=== PATIENT | male | born 1985 | race Caucasian/White ===

== ENCOUNTER 2020-11-20 21:25 | Inpatient (IN) | payer BC ==
[~2020-11-20] VITALS: Ht 175.3 cm; Wt 94.0 kg
[~2020-11-20 21:25] MED LIST: NAPROSYN500 MG PO
--- NOTE | 2020-11-20 22:10 | NUR ---
TO ROOM VIA AMBULATORY. NAD.
--- NOTE | 2020-11-20 23:00 | NUR ---
RESTING QUIETLY. NAD.
[2020-11-20 23:16] LABS: HEMATOCRIT 46.2 % (39.0-50.0); HEMOGLOBIN 15.4 g/dl (14.0-18.0); IMMATURE GRANULOCYTES 1.9 % (0.0-5.0); MEAN CELL VOLUME 89.5 fL CALC (80.0-100.0); MEAN CORPUSCULAR HGB 29.8 pG CALC (26.0-32.0); MEAN CORPUSCULAR HGB CONC 33.3 g/dL CAL (32.0-36.0); NEUT# 3.13 thou/uL (1.82-7.42); RED BLOOD COUNT 5.16 mill/uL (4.70-6.10); RED CELL DISTRI WIDTH 11.7 % (11.5-15.5)
[2020-11-20 23:32] LABS: ALBUMIN 4.3 g/dL (3.2-5.0); BILIRUBIN, TOTAL 0.5 mg/dL (0.0-1.4); BUN 16 mg/dL (9-20); BUN/CREATININE RATIO 19 (12-20 (CALC)); CHLORIDE 98 mmol/l (95-108); CREATININE 0.9 mg/dL (0.7-1.3); GFR > 60 ML/MIN (>=60 (CALC)); GFR FOR AFR.AMER. > 60 ML/MIN (>=60 (CALC)); LIPASE 168 u/l (23-300); POTASSIUM 3.7 mmol/l (3.5-5.1); TOTAL PROTEIN 7.3 g/dL (6.3-8.2)
[2020-11-20 23:37] LABS: ALKALINE PHOSPHATASE 57 u/l (38-126); ANION GAP 17 (6-22 (CALC)); CARBON DIOXIDE 24 mmol/l (22-30); SGOT/AST 50 u/l (17-59); SODIUM 135 mmol/l (137-146)
--- NOTE | 2020-11-21 | NUR ---
NO SIGNIFICANT CHANGE.
[2020-11-21] MEDS ORDERED: CRESTOR20 MG PO (00:44)
[2020-11-21] MEDS ORDERED: AZELASTINE HYD0.15 % NS (00:47)
[2020-11-21] MEDS ORDERED: FLOVENT HFA44 MC1 (00:48)
[2020-11-21] MEDS ORDERED: JANUMET1 TA1 PO (00:49)
--- NOTE | 2020-11-21 01:00 | NUR ---
MEDS INFUSING WITHOUT PROBLEM. NAD.
[2020-11-21] MEDS ORDERED: JARDIANCE25 MG PO (01:07)
[2020-11-21] MEDS ORDERED: PIOGLITAZONE HC30 MG PO (01:08)
[2020-11-21] MEDS ORDERED: COZAAR25 MG PO (01:09)
[2020-11-21] MEDS ORDERED: OMEPRAZOLE20 MG PO (01:09)
[2020-11-21] MEDS ORDERED: MONTELUKAST SOD10 MG PO (01:09)
[2020-11-21] MEDS ORDERED: CITALOPRAM20 M1 PO (01:10)
--- NOTE | 2020-11-21 05:00 | NUR ---
NO SIGNIFICANT CHANGE NOTED
--- NOTE | 2020-11-21 12:55 | NUR ---
Reassessment of patient completed. No distress noted. REMDESIVIR MED DONE
--- NOTE | 2020-11-21 15:34 | NUR ---
Reassessment of patient completed. No distress noted.
--- NOTE | 2020-11-21 16:37 | NUR ---
1ST ATTEND TO GIVE REPORT
--- NOTE | 2020-11-21 18:00 | NUR ---
SPO2 85% ON 5L NC. CALL PLACED TO DR ELIZABETH. HE WOULD LIKE 02 INCREASED TO MAINTAIN SPO2 >9O. PATIENT MAINTAINING 92-93% ON 7L NC. DR ELIZABETH NOTIFIED AND WOULD LIKE PATIENT TO BE SENT TO
--- NOTE | 2020-11-21 18:50 | NUR ---
RECIEVED REPORT FROM CELIO SEGURA
--- NOTE | 2020-11-21 18:51 | NUR ---
REPORTED GIVED TO MARQUITA PICKENS
[2020-11-21 19:20] VITALS: BP 168/81
--- NOTE | 2020-11-21 19:33 | NUR ---
ASSESSMENT COMPLETE. PATIENT LAYING IN BED PRONING AT THIS TIME. NON PRODUCTIVE COUGH AT TIMES. SHORTNESS OF BREATH AT TIMES WHEN CHANGING POSITIONS. NO COMPLAINTS VOICED AT THIS TIME. CALL LIGHT AND BELONGINGS WITHIN REACH.
--- NOTE | 2020-11-21 19:35 | NUR ---
PATIENT ARRIVED TO [facility] VIA WC TO ROOM 288. ALERT AND ORIENTED. ABLE TO MAKE NEEDS KNOWN. HIGH FLOW OXYGEN SET UP FOR PATIENT. WATER AT BEDSIDE, CALL LIGHT AND BELONGINGS WITHIN REACH. PATIENT WITH MEAL TRAY EATING. NO COPLAINTS VOICED AT THIS TIME.
--- NOTE | 2020-11-21 19:45 | NUR ---
ASSESSMENT COMPLETE. PATIENT LAYING PRONE IN BED. NON PRODUCTIVE COUGH AT TIMES. SHORTNESS OF BREATH WHEN CHANGING POSITIONS. PATIENT DOES APPEAR TO LAY ON HIS SIDE ALOT. CALL LIGHT AND BELONGINGS WITHIN REACH.
--- NOTE | 2020-11-21 21:25 | NUR ---
CALL TO DEMURRAGE MAN PHYSICIAN. NOTIFIED OF PATIENTS TEMPERATURE OF 101.7. RECEIVED NEW ORDER FOR PRN TYLENOL.
--- NOTE | 2020-11-21 21:30 | NUR ---
PT IS PRONING, OXYGEN SAT 88% AT THIS TIME. OXYGEN NC 9L HIGH FLOW 89-91% PT IS PRONING AT THIS TIME. INFORMED HIS NURSE OF THIS STATUS.
--- NOTE | 2020-11-21 21:39 | NUR ---
SPOKE TO PT'S PROVIDED PASSCODE FOR PT. ANSWERED HER POC QUESTIONS AND INFORMED HER OF MEDICATIONS BEING ADMINISTERED. I ALSO INFORMED HER OF HIS PRESENT STATUS AND O2 LEVELS AND ACTIVE CARE AT THIS TIME. SHE THANKED ME AND VERBALIZED UNDERSTANDING. I ENCOURAGED HER TO FEEL FREE TO CALL ANYTIME THROUGHOUT THE NIGHT IF SHE NEEDED TO.
[2020-11-22] VITALS (14 sets, daily range): BP systolic 109–160; BP diastolic 58–92
--- NOTE | 2020-11-22 02:15 | NUR ---
PATIENT VOIDED USING URINAL. 1100CC YELLOW URINE NOTED. NEW ICE WATER GIVEN TO PATIENT. OXYGEN UP TO 10 L HIGH FLOW. PATIENT SATUARATION AT 93%. NO DISTRESS NOTED. LAYING PRONE AT THIS TIME.
[2020-11-22 05:32] LABS: HEMATOCRIT 43.9 % (39.0-50.0); HEMOGLOBIN 14.7 g/dl (14.0-18.0); MEAN CELL VOLUME 88.9 fL CALC (80.0-100.0); MEAN CORPUSCULAR HGB 29.8 pG CALC (26.0-32.0); MEAN CORPUSCULAR HGB CONC 33.5 g/dL CAL (32.0-36.0); NEUT# 4.45 thou/uL (1.82-7.42); RED BLOOD COUNT 4.94 mill/uL (4.70-6.10); RED CELL DISTRI WIDTH 11.8 % (11.5-15.5)
[2020-11-22 06:04] LABS: ALBUMIN 3.6 g/dL (3.2-5.0); ALKALINE PHOSPHATASE 42 u/l (38-126); ANION GAP 16 (6-22 (CALC)); BILIRUBIN, TOTAL 0.6 mg/dL (0.0-1.4); BUN 16 mg/dL (9-20); BUN/CREATININE RATIO 28 (12-20 (CALC)); CARBON DIOXIDE 21 mmol/l (22-30); CHLORIDE 102 mmol/l (95-108); CREATININE 0.6 mg/dL (0.7-1.3); GFR > 60 ML/MIN (>=60 (CALC)); GFR FOR AFR.AMER. > 60 ML/MIN (>=60 (CALC)); POTASSIUM 4.3 mmol/l (3.5-5.1); SGOT/AST 46 u/l (17-59); SODIUM 134 mmol/l (137-146); TOTAL PROTEIN 6.4 g/dL (6.3-8.2)
[2020-11-22 06:19] LABS: C-REACTIVE PROTEIN 13.7 mg/dL (0-0.9)
--- NOTE | 2020-11-22 08:00 | NUR ---
Pt sleeping, easily aroused. Pt. A&Ox3. Pt denies any pain or discomfort at this time. Vitals and assessment completed. Lung sounds diminished,
--- NOTE | 2020-11-22 12:55 | NUR ---
Patient to ICU5
--- NOTE | 2020-11-22 13:06 | NUR ---
PT ARRIVED TO ICU, PRONE ON BED, NO S/S OF DISTRESS NOTED, PLACED ON VAPOTHERM AT 30L/100% DENIES ANY FURTHER NEEDS
--- NOTE | 2020-11-22 14:15 | NUR ---
REDEMISVER HUNG IVPB, URINAL EMPTIED, PT NOW SITTING UP SUPINE
--- NOTE | 2020-11-22 18:36 | NUR ---
PT GUILLERMINA UPDATEED MUTIPLE TIMES ON PHONE. PT DENIES NEEDS AT THIS TIME, EATING DINNER
--- NOTE | 2020-11-22 19:45 | NUR ---
RESTING IN BED IN HIGH FOWLERS POSITION. ON VAPOTHERM 30L/100% RESP SHALLOW. PAUL. BREATH SOUNDS DIMINISHED THROUGHOUT. IV SITE IN RAC WITH NS INFUSING AT 125 ML/HR. VOIDS LARGE AMOUNT CLEAR YELLOW URINE IN URINAL. SCRUM MASTER SHOWS SR. DISCUSSED PLAN OF CARE. EXPLAINED THE IMPORTANCE OF RESTING IN PRONE POSITION MUCH POSSIBLE. PATIENT VERBALIZES UNDERSTANDING. CALL THAO IN REACH. DENIES NEEDS AT THIS TIME.
--- NOTE | 2020-11-22 22:15 | NUR ---
CALL TO PATIENT , TIESHA TO UPDATE ON PATIENT CONDITION. PATIENT MOM PHONED EARLIER ADVISED TO GET UPDATES THROUGH PATIENT .
[2020-11-23] VITALS (23 sets, daily range): BP systolic 114–147; BP diastolic 58–94
--- NOTE | 2020-11-23 | NUR ---
PATIENT RESITNG IN PRONE POSITION. O2 SATS 93-97% VSS. SR ON MONITOR. IV INFUSING WITHOUT INCIDENT.
--- NOTE | 2020-11-23 02:00 | NUR ---
PATIENT CONTINUES TO REST IN PRONE POSITION. VSS. RESP NON-LABORED AT THIS TIME. REMAINS ON VAPOTHERM 30 L/80% MONITOR SR. IV INFUSING WITHOUT INCIDENT.
--- NOTE | 2020-11-23 05:44 | NUR ---
PATIENT RESTING WITHOUT COMPLAINTS. VSS. RESP NON-LABORED. REMIANS ON VAPOTHERM. IV INFUSING WITHOUT INCIDENT.
[2020-11-23 06:13] LABS: HEMATOCRIT 45.4 % (39.0-50.0); HEMOGLOBIN 15.2 g/dl (14.0-18.0); MEAN CELL VOLUME 89.2 fL CALC (80.0-100.0); MEAN CORPUSCULAR HGB 29.9 pG CALC (26.0-32.0); MEAN CORPUSCULAR HGB CONC 33.5 g/dL CAL (32.0-36.0); RED BLOOD COUNT 5.09 mill/uL (4.70-6.10); RED CELL DISTRI WIDTH 11.9 % (11.5-15.5)
[2020-11-23 06:31] LABS: ANION GAP 14 (6-22 (CALC)); BUN 15 mg/dL (9-20); BUN/CREATININE RATIO 26 (12-20 (CALC)); CARBON DIOXIDE 22 mmol/l (22-30); CHLORIDE 106 mmol/l (95-108); CREATININE 0.6 mg/dL (0.7-1.3); GFR > 60 ML/MIN (>=60 (CALC)); GFR FOR AFR.AMER. > 60 ML/MIN (>=60 (CALC)); POTASSIUM 4.4 mmol/l (3.5-5.1); SODIUM 138 mmol/l (137-146)
--- NOTE | 2020-11-23 06:45 | NUR ---
REPORT RECEIVED FROM AMARILIS PICKENS. CARE ASSUMED.
--- NOTE | 2020-11-23 07:40 | NUR ---
PATIENT RESTING IN BED AWAKE. PATIENT IS ALERT AND ORIENTED X3. SHIFT ASSESSMENT COMPLETED AT THIS TIME. IV PATENT X1. SET UP FOR AM MEAL. EDUCATION GIVEN ON PRONING AND INCENTIVE SPIROMETER. CALL LIGHT IN REACH. WILL CONTINUE TO MONITOR.
--- NOTE | 2020-11-23 08:00 | NUR ---
SPOUSE CALL AT THIS TIME. CODE VERIFIED. UPDATE GIVEN.
--- NOTE | 2020-11-23 08:22 | NUR ---
PT IN BED, NAD, WATCHING TELEVISION. NO CHANGES IN HHFNC PARAMETERS AT THIS TIME. EQUIPMENT MAINT TECH TO MONITOR.
--- NOTE | 2020-11-23 09:00 | NUR ---
DR BRICENO AT BEDSIDE AT THIS TIME. PLAN OF CARE DISCUSSED.
--- NOTE | 2020-11-23 10:00 | NUR ---
IV TO RAC OUT. REMOVED. NEW IV STARTED TO LFA. PATIENT TOLERATED WELL.
--- NOTE | 2020-11-23 10:15 | NUR ---
NO CHANGES AT THIS TIME. CUSTOMS COMPLIANCE DIRECTOR TO MONITOR.
--- NOTE | 2020-11-23 12:00 | NUR ---
PATIENT SITTING UP IN BED EATING LUNCH AT THIS TIME. CALL LIGHT IN REACH. WILL CONTINUE TO MONITOR
--- NOTE | 2020-11-23 13:15 | NUR ---
VAPOTHERM TITRATE TO 28 LITERS 80%. O2 SATS REMAINS > 92%. WILL CONTINUE TO MONITOR.
--- NOTE | 2020-11-23 14:00 | NUR ---
PATIENT RESTING IN BED WATCHING TV. VAPOTHERM SETTIGN REMAIN THE SAME. NO DISTRESS NOTED. CALL LIGHT IN REACH. WILL CONTINUE TO MONITOR.
--- NOTE | 2020-11-23 16:02 | NUR ---
PATIENT RESTING IN BED. VSS ON MONITOR. WILL CONTINUE TO MONITOR.
--- NOTE | 2020-11-23 18:00 | NUR ---
PATIENT RESTING IN BED EATING DINNER. RESP ARE EVEN AND UNLABORED. NO DISTRESS NOTED. CALL LIGHT IN REACH. WILL CONTINUE TO MONITOR.
--- NOTE | 2020-11-23 19:46 | NUR ---
PATIENT RESTING INBED AWAKE. PATIENT IS ALERT AND ORIENTED X3. VSS ON MONITOR. SPOUSE DROPPED OFF ITEMS THAT WERE GIVEN TOPATIENT. CALL LIGHT IN REACH.WILL CONTINUE MONITOR.
--- NOTE | 2020-11-23 22:45 | NUR ---
BEDSIDE REPORT RECEIVED FROM Prem BLACK RN. NON-INVASIVE HEMODYNAMICS STABLE. PT APPEARS TO BE SLEEPING COMFORTABLY IN PRONE POSITION. NO APPARENT DISTRESS. WEARING 02 @ 28L/MIN 80% FIO2 VIA VAPOTHERM L-FA #22G WITH NON-OCCLUSIVE DRESSING C/D/I SALINE LOCKED. URINAL AT BEDSIDE. CALL THAO WITHIN REACH.
[2020-11-24] VITALS (22 sets, daily range): BP systolic 113–148; BP diastolic 63–92
--- NOTE | 2020-11-24 | NUR ---
PT LAYING IN PRONE POSITIONS. APPEARS TO BE SLEEPING COMFORTABLY. VAPOTHERM IN PLACE. SPO2 94%. SB 50S ON MONITOR. APPEARS COMFORTABLE AND IN NO DISTRESS. CALL THAO REMAINS WITHIN REACH.
[2020-11-24 05:40] LABS: HEMOGLOBIN 15.1 g/dl (14.0-18.0); MEAN CELL VOLUME 88.9 fL CALC (80.0-100.0); MEAN CORPUSCULAR HGB 29.8 pG CALC (26.0-32.0); MEAN CORPUSCULAR HGB CONC 33.6 g/dL CAL (32.0-36.0); RED BLOOD COUNT 5.06 mill/uL (4.70-6.10); RED CELL DISTRI WIDTH 11.7 % (11.5-15.5)
[2020-11-24 05:52] LABS: ANION GAP 15 (6-22 (CALC)); BUN 19 mg/dL (9-20); BUN/CREATININE RATIO 31 (12-20 (CALC)); CARBON DIOXIDE 23 mmol/l (22-30); CHLORIDE 104 mmol/l (95-108); CREATININE 0.6 mg/dL (0.7-1.3); GFR > 60 ML/MIN (>=60 (CALC)); GFR FOR AFR.AMER. > 60 ML/MIN (>=60 (CALC)); POTASSIUM 4.4 mmol/l (3.5-5.1); SODIUM 137 mmol/l (137-146)
--- NOTE | 2020-11-24 08:26 | NUR ---
PT SITTING IN BED. A&O X4. FLUSHED APPEARANCE NOTED; AFEBRILE AT THIS TIME. CLEAR DIMINISHED BREATH SOUNDS UPON AUSCULTATION. VAPOTHERM IN PLACE 28L @ 80%. PT SUSTAINING 91-93%. CURRENTLY SB/SR 54-60 BPM. PT ENCOURAGED TO USE IS DEVICE. ACTIVE BOWEL SOUNDS X4 QUADRANTS. NO OTHER NEEDS AT THIS TIME. ASSESSMENT COMPLETED. DISCUSSED POC. ISOLATION PRECAUTIONS IN PLACE. CALL LIGHT WITHIN REACH.
--- NOTE | 2020-11-24 09:34 | NUR ---
DR BRICENO AT BEDSIDE DISCUSSING POC
--- NOTE | 2020-11-24 10:00 | NUR ---
PT SITTING IN BED. NO OTHER NEEDS AT THIS TIME. CALL LIGHT WITHIN REACH.
--- NOTE | 2020-11-24 10:01 | NUR ---
WEANED PER PT SPO2. MARTÍN WELL AT THIS TIME. CORPORATE FITNESS PROGRAM COORDINATOR TO MONITOR.
--- NOTE | 2020-11-24 11:59 | NUR ---
PT IN BED EATING LUNCH. VAPOTHERM REMAINS IN PLACE. NO OTHER NEEDS AT THIS TIME. CALL LIGHT WITHIN REACH.
--- NOTE | 2020-11-24 14:19 | NUR ---
PT SITTING IN BED. NO DISTRESS NOTED. CALL LIGHT WITHIN REACH.
--- NOTE | 2020-11-24 15:00 | NUR ---
ROBITUSSIN GIVEN FOR COUGH, PT DENIES THE NEEDED FOR TORADOL AT THIS TIME. 900 CC OF CLEAR YELLOW URINE NOTED. NO OTHER NEEDS AT THIS TIME. CALL LIGHT WITHIN REACH.
--- NOTE | 2020-11-24 18:00 | NUR ---
PT SITTING IN BED. NO DISTRESS NOTED. VAPOTHERM REMAINS. O2 93%. NO OTHER NEEDS AT THIS TIME. CALL LIGHT WITHIN REACH.
--- NOTE | 2020-11-24 19:00 | NUR ---
REPORT RECEIVED FROM Govind MEYER RN, CARE OF PT ASSUMED AT THIS TIME.
--- NOTE | 2020-11-24 20:26 | NUR ---
PHYSICAL ASSESEMENT COMPLETE: A/0X3, PLEASANT AND COOPERATIVE. SEMI-FOWLERS IN BED. SB 50S-SR 60S ON MONITOR. BREATHING REGULAR AND UNLABORED. SP02 91% ON VAPOTHERM @ 25L/M FIO2 75%. LUNG SOUNDS CLEAR WITH DIMINISHED BASES. SOB WITH MINIMAL EXERTION. MILD DRY NON-PRODUCTIVE COUGH. L-FA 22G PATENT AND SALINE LOCKED. PT REPORTS GOOD APPETITE. REPORTS LAST BM "YESTERDAY OR THE DAY BEFORE". DENIES URINARY PROBLEMS. USING URINAL AT BEDSIDE. URINE PALE YELLOW AND CLEAR. SCHEDULED MEDICATIONS AND REQUESTED PRN MEDICATIONS ADMINISTERED. SEE E-MAR FOR DETAILS. VERBAL MEDICATION EDUCATION PROVIDED. PLAN OF CARE REVIEWED. PULMONARY HYGIENE AND PRONING EDUCATION PROVIDED. PT VERBALIZES UNDERSTANDING AND AGREEMENT. PT DENIES FURTHER NEEDS AT THIS TIME. ITEMS WITHIN REACH. CALL THAO WITHIN REACH. AGREES TO CALL PRN. LIGHTS DIMMED AND CURTAINED PULLED FOR COMFORT. COVID-19 ISOLATION MAINTAINED. BED LOCKED IN LOW POSITION WITH BEDRAILS UP X2.
--- NOTE | 2020-11-24 20:52 | NUR ---
CALL RECEIVED REGARDING PATIEMT. CALLER IDENTIFIES SELF PT'S SPOUSE AND PROVIDES CORRECT COMMUNICATION CODE. PT'S STATUS AND PLAN OF CARE REVIEWED WITH CALLER. ALL QUESTIONS ANSWERED. DENIES FURTHER QUESTIONS AND VERBALIZES UNDERSTANDING.
--- NOTE | 2020-11-24 22:09 | NUR ---
800ML CLEAR PALE YELLOW URINE EMPTIED FROM URINAL. PT REMAINS SEMIFOWLERS IN BED. LISTENING TO MUSIC ON CELL PHONE. ADVISED OF CALL RECEIVED FROM SPOUSE AND THAT HIS STATUS AND PLAN OF CARE WAS REVIEWED WITH CALLER. REMAINS SB-SR 60/50S ON MONITOR. SP02 96%. NO CHANGES TO VAPOTHERM SETTINGS. PT DENIES FURTHER NEEDS. CALL THAO REMAINS WITHIN REACH. AGREES TO CALL PRN.
[2020-11-25] VITALS (21 sets, daily range): BP systolic 108–142; BP diastolic 65–87
--- NOTE | 2020-11-25 00:21 | NUR ---
APPEARS TO BE SLEEPING COMFORTABLY. LAYING IN PRONE POSITION. SP02 96%. SB 50S ON MONITOR. NO APPARENT DISTRESS. CALL THAO REMAINS WITHIN REACH.
--- NOTE | 2020-11-25 03:00 | NUR ---
APPEARS TO BE SLEEPING COMFORTABLY. LAYING IN PRONE POSITION. SP02 96%. SB 50S ON MONITOR. NO APPARENT DISTRESS. CALL THAO REMAINS WITHIN REACH.
--- NOTE | 2020-11-25 04:58 | NUR ---
WOODEN TANK ERECTOR AT BEDSIDE COLLECTING AM LABS.
[2020-11-25 05:55] LABS: HEMATOCRIT 45.7 % (39.0-50.0); HEMOGLOBIN 15.7 g/dl (14.0-18.0); MEAN CELL VOLUME 87.9 fL CALC (80.0-100.0); MEAN CORPUSCULAR HGB 30.2 pG CALC (26.0-32.0); MEAN CORPUSCULAR HGB CONC 34.4 g/dL CAL (32.0-36.0); RED BLOOD COUNT 5.2 mill/uL (4.70-6.10); RED CELL DISTRI WIDTH 11.7 % (11.5-15.5)
[2020-11-25 05:57] LABS: ANION GAP 15 (6-22 (CALC)); BUN 20 mg/dL (9-20); BUN/CREATININE RATIO 38 (12-20 (CALC)); CARBON DIOXIDE 23 mmol/l (22-30); CHLORIDE 101 mmol/l (95-108); CREATININE 0.5 mg/dL (0.7-1.3); GFR > 60 ML/MIN (>=60 (CALC)); GFR FOR AFR.AMER. > 60 ML/MIN (>=60 (CALC)); POTASSIUM 4.7 mmol/l (3.5-5.1); SODIUM 135 mmol/l (137-146)
--- NOTE | 2020-11-25 06:20 | NUR ---
APPEARS TO BE SLEEPING COMFORTABLY. LAYING IN PRONE POSITION. SP02 96%. SB 50S ON MONITOR. NO APPARENT DISTRESS. CALL THAO REMAINS WITHIN REACH.
--- NOTE | 2020-11-25 06:47 | NUR ---
WEANED PARAMTERES PER PTSPO2. MARTÍN NURIA AT THIS TIME. LAYING PRONE IN BED. NAD. VSS. JACKET PREPARER TO MONITOR.
--- NOTE | 2020-11-25 07:05 | NUR ---
pt awake in bed; no apparent distress noted; pt offers no complaints; assessment completed at this time; pt alert and oriented; denies pain; no n/v noted; resp even and unlabored; lungs clear/ diminished post bases; skin color wnl; vapotherm intact and maintained at 20L/75% FiO2; conference interpreter cough noted; hr reg; strong pulses; no edema noted; sb on monitor; abd soft with bs present; no bm noted per residential mortgage underwriter; pt voiding clear yellow urine without complication; urinal at bedside; #22 patent to lfa with ivf infusing without complicaiton; no redness or edema noted at site; IS at bedside; pt able to demo use to this residential mortgage underwriter; poor effort; pt able to pull 750ml max x2 reps; q1hr use x10 reps encouraged; pt encouraged to get in chair today; plan of care/ am meds explained; call light within reach; will continue to monitor
--- NOTE | 2020-11-25 08:22 | NUR ---
am meds explained and administered; pt assisted to recliner per this literary writer at this time; pt tolerated activity very well; vapotherm intact and maintained; will continue to monitor
--- NOTE | 2020-11-25 09:25 | NUR ---
Dr Grimes present at bedside to assess pt and discuss plan of care
--- NOTE | 2020-11-25 09:30 | NUR ---
Dr Grimes present at bedside to assess pt and discuss plan of care
--- NOTE | 2020-11-25 09:42 | NUR ---
TITRATED FIO2 PER PT SPO2. LOOM CHANGER TO MONITOR, PT MARTÍN WELL AT HTIS TIME.
--- NOTE | 2020-11-25 10:20 | NUR ---
awake in recliner; offers no complaints; iv intact; vapotherm intact and maintained; will continue to monitor
--- NOTE | 2020-11-25 12:28 | NUR ---
awake in recliner; offers no complaints; iv intact and patent; sr on monitor; o2 per vapotherm; call light within reach; will continue to monitor
--- NOTE | 2020-11-25 14:00 | NUR ---
awake in recliner; offers no complaints; iv intact; sb on monitor; o2 per vapotherm; call light within reach; will continue to monitor
--- NOTE | 2020-11-25 16:15 | NUR ---
awake in recliner; offers no complaints; iv intact and patent; sb on monitor; call light within reach; will continue to monitor
--- NOTE | 2020-11-25 18:13 | NUR ---
awake in recliner; offers no complaints; iv intact and saline locked; sr on monitor; o2 per vapotherm; call light within reach
--- NOTE | 2020-11-25 19:00 | NUR ---
REPORT RECEIVED FROM Duong GALINDO RN, CARE OF PT ASSUMED AT THIS TIME.
--- NOTE | 2020-11-25 20:15 | NUR ---
PT SITTING UP IN RECLINER. VAPOTHERM @20L/M FIO2 70% TEMP 33. SP02 95%, RESPIRATIONS UNLABORED. SOB WITHMINIMAL EXERTION. ABLE TO CARRY ON CONVERSATION WITHOUT DESATURATION. DRY NON-PRODUCTIVE COUGH. LUNGS CLEAR AND DIMINISHED. L-FA 22G IV PATENT AND SALINE LOCKED. 2,800 ML CLEAR YELLOW URINE EMPTIED FROM PT'S URINALS. URINALS DISPOSED OF AND 2 NEW ONES PROVIDED. PT DENIES FURTHER NEEDS AT THIS TIME. PLAN OF CARE REVIEWED. PT VERBALIZES UNDERSTANDING AND DENIES QUESTIONS. CALL THAO WITHIN REACH, AGREES TO CALL PRN. COVID-19 ISOLATION MAINTAINED.
--- NOTE | 2020-11-25 22:15 | NUR ---
APPEARS TO BE SLEEPING COMFORTABLY. LAYING IN PRONE POSITION. SP02 96%. SB 50S ON MONITOR. NO APPARENT DISTRESS. CALL THAO REMAINS WITHIN REACH.
[2020-11-26] VITALS (17 sets, daily range): BP systolic 102–142; BP diastolic 63–84
--- NOTE | 2020-11-26 00:15 | NUR ---
APPEARS TO BE SLEEPING COMFORTABLY. LAYING IN PRONE POSITION. SP02 96%. SB 50S ON MONITOR. NO APPARENT DISTRESS. CALL THAO REMAINS WITHIN REACH.
--- NOTE | 2020-11-26 02:15 | NUR ---
APPEARS TO BE SLEEPING COMFORTABLY. LAYING IN PRONE POSITION. SP02 96%. SB 50S ON MONITOR. NO APPARENT DISTRESS. CALL THAO REMAINS WITHIN REACH.
--- NOTE | 2020-11-26 04:00 | NUR ---
APPEARS TO BE SLEEPING COMFORTABLY. LAYING IN PRONE POSITION. SP02 96%. SB 50S ON MONITOR. NO APPARENT DISTRESS. CALL THAO REMAINS WITHIN REACH.
--- NOTE | 2020-11-26 04:50 | NUR ---
Shawna ELKINS IN ROOM COLLECTING LABWORK.
[2020-11-26 05:48] LABS: ANION GAP 18 (6-22 (CALC)); BUN 22 mg/dL (9-20); BUN/CREATININE RATIO 44 (12-20 (CALC)); C-REACTIVE PROTEIN 2.3 mg/dL (0-0.9); CARBON DIOXIDE 21 mmol/l (22-30); CHLORIDE 98 mmol/l (95-108); CREATININE 0.5 mg/dL (0.7-1.3); GFR > 60 ML/MIN (>=60 (CALC)); GFR FOR AFR.AMER. > 60 ML/MIN (>=60 (CALC)); HEMATOCRIT 46.2 % (39.0-50.0); HEMOGLOBIN 16.7 g/dl (14.0-18.0); MEAN CELL VOLUME 87.3 fL CALC (80.0-100.0); MEAN CORPUSCULAR HGB 31.6 pG CALC (26.0-32.0); MEAN CORPUSCULAR HGB CONC 36.1 g/dL CAL (32.0-36.0); NEUT# 4.9 thou/uL (1.82-7.42); POTASSIUM 4.9 mmol/l (3.5-5.1); RED BLOOD COUNT 5.29 mill/uL (4.70-6.10); RED CELL DISTRI WIDTH 11.5 % (11.5-15.5); SODIUM 133 mmol/l (137-146)
[2020-11-26 05:52] LABS: IMMATURE GRANULOCYTES 6.1 % (0.0-5.0)
--- NOTE | 2020-11-26 07:45 | NUR ---
PT SITTING IN BED. A&O X4. NO DISTRESS NOTED. PT CURRENTLY ON VAPOTHERM 20L 70%. O2 SUSTAINING 90-92%. CLEAR/DIMINISHED BREATH SOUNDS UPON AUSCULTATION. IS DEVICE AT BEDSIDE, PT ENCOURAGED TO USE IS DEVICE Q1HR WHILE AWAKE. PT ASSISTED UP TO CHAIR, TOLERATED WELL. ACTIVE BOWEL SOUNDS X4 QUADRANTS, PT REPORTS BM 2 DAYS AGO. #22G LFA REMAINS HEALTHY AND PATENT. NO OTHER NEEDS AT THIS TIME, BED LINEN CHANGED AT THIS TIME. ASSESSMENT COMPLETED. DISCUSSED POC. CALL LIGHT WITHIN REACH.
[2020-11-26 09:12] LABS: SGOT/AST 62 u/l (17-59)
--- NOTE | 2020-11-26 10:00 | NUR ---
PT SITTING IN RECLINER, NO NEEDS AT THIS TIME. VAPOTHERM REMAINS AT 20L 70% SUSTAINING 94%. CALL LIGHT WITHIN REACH.
--- NOTE | 2020-11-26 12:47 | NUR ---
RT AT BEDSIDE ATTEMPTING TO PLACE PT ON HF NC @15L. PHLEBOTOMY SUPPORT TECH AND THIS POOL COORDINATOR TO MONITOR FOR THE NEED OF O2 SUPPLEMENTATION.
--- NOTE | 2020-11-26 14:15 | NUR ---
PT SITTING IN RECLINER. O2 VIA NC HF @15L REMAINS; O2 SUSTAINING 92-94%. NO OTHER NEEDS AT THIS TIME. CALL LIGHT WITHIN REACH.
--- NOTE | 2020-11-26 14:53 | NUR ---
O2 TITRATED DOWN TO 13L HF, PT SUSTAINING 93%. NO NEEDS REPORTED AT THIS TIME. CALL LIGHT WITHIN REACH.
--- NOTE | 2020-11-26 15:15 | NUR ---
PT IS TOLERATING 15 LITER HFNC WELL, VAPOTHERM REMAINS AT BEDSIDE ON STANDBY. SATS OF 93%.
--- NOTE | 2020-11-26 16:10 | NUR ---
PT SITTING IN RECLINER, O2 VIA NC @13L HF SUSTAINING 94%. NO NEEDS AT THIS TIME. CALL LIGHT WITHIN REACH.
--- NOTE | 2020-11-26 16:49 | NUR ---
PT IS ON 13 LITER HFNC AND TOLERATING WELL.
--- NOTE | 2020-11-26 17:34 | NUR ---
VERBAL ORDER OBTAINED TO TRANSFER PT TO [facility] WITH TELEMETRY BY DR ELIZABETH. [facility] NOTIFIED. PT UPDATED ON POC. PT AGREEABLE TO PLAN. NO OTHER NEEDS AT THIS TIME. CALL LIGHT WITHIN REACH.
--- NOTE | 2020-11-26 18:12 | NUR ---
O2 TITRATED TO 11L HF NC, PT SUSTAINING 90-92%. NO OTHER NEEDS AT THIS TIME. CALL LIGHT WITHIN REACH.
--- NOTE | 2020-11-26 19:29 | NUR ---
PT TRANSFERRED TO OR ROOM 289 IN STABLE CONDITION, PLACED ON LIAISON INSPECTION LABORATORY ASSISTANT AND ON NC 11L HF, PT TOLERATED TRANSFER WELL. ORIENTED PT TO ROOM, CALL LIGHT WITHIN REACH.
--- NOTE | 2020-11-26 19:29 | NUR ---
PT TRANSFERRED TO 289 FROM ICU. STABLE WITH SPO2 OF 92-93% IN HIGHFLOW NC AT 11L/MIN. BEDSIDE REPORT RECEIVED FROM Govind MEYER RN. CARE OF PT ASSUMMED AT THIS TIME. PT DENIES NEEDS AT THIS TIME. CALL THAO WITHIN REACH, AGREES TO MILAGROS PRN.
--- NOTE | 2020-11-26 20:45 | NUR ---
FRESH WATER PROVIDED. 800ML CLEAR YELLOW URINE EMPTIED FROM URINAL.
--- NOTE | 2020-11-26 22:19 | NUR ---
GATORADE PROVIDED. 800 ML CLEAR YELLOW URINE EMPTIED FROM CABRERA.
[2020-11-27 05:29] VITALS: BP 120/63
[2020-11-27 05:30] LABS: HEMATOCRIT 46.2 % (39.0-50.0); HEMOGLOBIN 16.5 g/dl (14.0-18.0); MEAN CELL VOLUME 87.3 fL CALC (80.0-100.0); MEAN CORPUSCULAR HGB 31.2 pG CALC (26.0-32.0); MEAN CORPUSCULAR HGB CONC 35.7 g/dL CAL (32.0-36.0); NEUT# 5.41 thou/uL (1.82-7.42); RED BLOOD COUNT 5.29 mill/uL (4.70-6.10); RED CELL DISTRI WIDTH 11.5 % (11.5-15.5)
[2020-11-27 05:37] LABS: IMMATURE GRANULOCYTES 6.7 % (0.0-5.0)
[2020-11-27 05:48] LABS: ANION GAP 18 (6-22 (CALC)); BUN 21 mg/dL (9-20); BUN/CREATININE RATIO 43 (12-20 (CALC)); C-REACTIVE PROTEIN 1.8 mg/dL (0-0.9); CARBON DIOXIDE 19 mmol/l (22-30); CHLORIDE 98 mmol/l (95-108); CREATININE 0.5 mg/dL (0.7-1.3); GFR > 60 ML/MIN (>=60 (CALC)); GFR FOR AFR.AMER. > 60 ML/MIN (>=60 (CALC)); POTASSIUM 4.6 mmol/l (3.5-5.1); SODIUM 130 mmol/l (137-146)
--- NOTE | 2020-11-27 07:00 | NUR ---
RECIEVED REPORT FROM CELIO LOZANO
[2020-11-27 08:16] VITALS: BP 110/65
--- NOTE | 2020-11-27 08:16 | NUR ---
PT RESTING IN SEMI FOWLERS POSITION. PT IS A/O X3. ASSESSMENT AND VITALS COMPLETED. RESPIRATIONS ARE EVEN AND UNLABORED ON 10L HIGH FLOW NC, 92%. LUNG SOUNDS ARE CLEAR IN UPPER LOBES, DIMINISHED IN LOWER LOBES. HEART RHYTHM NORMAL WITH TELE IN PLACE. BOWEL SOUNDS ARE ACTIVE. #22G LFA FLUSHED, SITE APPEARS HEALTHY AND PATENT. SKIN INTACT. PT COMPLAINS OF 3/10 GENERALIZED PAIN.TYLENOL ADMINISTERED. PULSES STRONG. PT DENIES OF ANY ADDITONAL PAINS OR DISCOMFORTS AT THIS TIME. ALL SAFETY PRECAUTIONS ARE IN PLACE WITH CALL LIGHT IN REACH. WILL CONTINUE TO MONITOR. AIR/CONTACT PRECAUTIONS.
--- NOTE | 2020-11-27 10:00 | NUR ---
DR ELIZABETH AND WILLIAMS,ANRP AT BEDSIDE
--- NOTE | 2020-11-27 10:01 | NUR ---
DR ELIZABETH AND WILLIAMS,ANRP AT BEDSIDE
[2020-11-27 10:40] VITALS: BP 118/67
--- NOTE | 2020-11-27 10:55 | NUR ---
ACCUCHECK REUSLTING IN CRITICALLY HIGH. NEW #22G RFA STARTED, SITE REMAINS HEALTHY AND PATENT. GLUCOSE LAB COLLECTED AT THIS TIME, SENT TO LAB. #22G LFA REMOVED WITH CATH STILL INTACT.
--- NOTE | 2020-11-27 11:20 | NUR ---
BASEBALL INSPECTOR AND REPAIRER INFORMED BY BERNADETTE IN LAB, GLUCOSE RESULTING IN 528. Antonette.LUIS,ANRP NOTIFIED. ORDERED TO GIVE 14 HUMALOG AND 10 LEVEMIR.
--- NOTE | 2020-11-27 11:30 | NUR ---
PT RESTING IN SEMI FOWLERS POSITION. RESPIRATIONS ARE EVEN AND UNLABORED WITH NO DISTRESS NOTED. O2 DECREASED TO 6L HIGH FLOW NC, 93%. RESPIRATIONS REMAINS EVEN AND UNLABORED. #22G RFA REMAINS IN PLACE. TELE MONITORING IN PLACE. SCHEDULED MEDICATIONS ADMINISTERED. PT EDUCATED ON GLUCOS AND INSULIN COVERAGE. PT VERBALIZED UNDERSTANDING. PT DENIES OF ANY ADDITIONAL NEEDS AT THIS TIME. ALL SAFETY PRECAUTIONS ARE IN PLACE WITH CALL LIGTH IN REACH. WILL CONTINUE TO MONITOR.
--- NOTE | 2020-11-27 14:08 | NUR ---
RESPIRATIONS ARE EVEN AND UNLABORED ON 6L HIGH FLOW NC. O2 DECREASED TO 4L NC, 94%. RESPIRATIONS REMAINS UNLABORED. PT DENIES OF ANY NEEDS. ALL SAFETY PRECAUTIONS ARE IN PLACE WITH CALL LIGHT IN REACH. WILL CONTINUE TO MONITOR.
[2020-11-27 14:40] VITALS: BP 116/69
--- NOTE | 2020-11-27 15:51 | NUR ---
O2 94% ON 4L NC. O2 DECREASED TO 3L NC. EXTENSION APPLIED TO ALLOW PT TO AMBULATE TO BATHROOM. RESPIRATIONS REMAINS EVEN AND UNLABORE DWITH NO DISTRESS NOTED. TELE MONITORING IN PLACE. PT DENIES OF ANY PAINS OR DISCOMFORTS AT THIS TIME. ALL SAFETY PRECAUTIONS ARE IN PLACE WITH CALL LIGHT IN REACH. WILL CONTINUE TO MONITOR.
--- NOTE | 2020-11-27 16:53 | NUR ---
O2 91-92% ON 3L NC. RESPIRATIONS ARE EVEN AND UNLABORED WITH NO DISTRESS NOTED. ACCUCHECK RESULTING IN 390, COVERAGE ADMINISTERED. PT DENIES OF ANY ADDITIONAL NEEDS. ALL SAFETY PRECAUTIONS ARE IN PLACE WITH CALL LIGHT IN REACH. WILL CONTINUE TO MONITOR
--- NOTE | 2020-11-27 18:00 | NUR ---
O2 REMAINS 92% ON 3L NC. RESPIRATIONS ARE EVEN AND UNLABORED. PT DENIES OF ANY NEEDS. AT THIS TIME. ALL SAFETY PRECAUTIONS ARE I PLACE. WILL CONTINUE TO MONITOR.
[2020-11-27 18:59] VITALS: BP 157/68
--- NOTE | 2020-11-27 20:00 | NUR ---
PHYSICAL ASSESMENT COMPLETE. PT CURRENTLY DENIES PAIN OR DISCOMFORT. SCHEDULED MEDICATIONS AND PRN MEDICATION ADMINISTERED, SEE E-MAR. PT DENIES ANY NEEDS AT THIS TIME. PLAN OF CARE REVIEWED, PT DENIES QUESTIONS, VERBALIZES UNDERSTANDING. ITEMS WITHIN REACH, BED LOCKED IN LOW POSITION W/ BEDRAILS UP X2. CALL THAO WITHIN REACH, AGREES TO CALL PRN.
[2020-11-28] VITALS: BP 124/82
--- NOTE | 2020-11-28 | NUR ---
PT LAYING IN BED WITH EYES CLOSED, APPEARS TO BE SLEEPING, APPEARS COMFORTABLE AND IN NO DISTRESS. RESPIRATIONS REGULAR AND UNLABORED. ITEMS REMAIN WITHIN REACH, CALL THAO REMAINS WITHIN REACH. BED REMAINS LOCKED AND IN LOW POSITION WITH BEDRAILS UP X2. WILL CONTINUE TO MONITOR.
[2020-11-28 04:00] VITALS: BP 114/70
--- NOTE | 2020-11-28 04:00 | NUR ---
PT RESTING IN BED, NO SIGNS OF DISTRESS NOTED, RESP EVEN AND UNLABORED. PT VOICES NO NEEDS OR COMPLAINTS AT THIS TIME. CALL LIGHT IN REACH, CONTINUE TO MONITOR.
[2020-11-28 05:56] LABS: HEMATOCRIT 46.4 % (39.0-50.0); HEMOGLOBIN 16.2 g/dl (14.0-18.0); MEAN CELL VOLUME 87.1 fL CALC (80.0-100.0); MEAN CORPUSCULAR HGB 30.4 pG CALC (26.0-32.0); MEAN CORPUSCULAR HGB CONC 34.9 g/dL CAL (32.0-36.0); NEUT# 5.14 thou/uL (1.82-7.42); RED BLOOD COUNT 5.33 mill/uL (4.70-6.10); RED CELL DISTRI WIDTH 11.6 % (11.5-15.5)
[2020-11-28 06:18] LABS: ALBUMIN 3.3 g/dL (3.2-5.0); BILIRUBIN, TOTAL 0.5 mg/dL (0.0-1.4); BUN 24 mg/dL (9-20); BUN/CREATININE RATIO 39 (12-20 (CALC)); CHLORIDE 98 mmol/l (95-108); CREATININE 0.6 mg/dL (0.7-1.3); GFR > 60 ML/MIN (>=60 (CALC)); GFR FOR AFR.AMER. > 60 ML/MIN (>=60 (CALC)); POTASSIUM 4.5 mmol/l (3.5-5.1); SGOT/AST 31 u/l (17-59); SODIUM 130 mmol/l (137-146); TOTAL PROTEIN 6.2 g/dL (6.3-8.2)
[2020-11-28 06:22] LABS: ALKALINE PHOSPHATASE 66 u/l (38-126); ANION GAP 14 (6-22 (CALC)); CARBON DIOXIDE 23 mmol/l (22-30)
[2020-11-28 06:42] LABS: IMMATURE GRANULOCYTES 6.3 % (0.0-5.0)
--- NOTE | 2020-11-28 07:00 | NUR ---
RECIEVED REPORT FROM CELIO GUTIERREZ
[2020-11-28 08:04] VITALS: BP 109/62
--- NOTE | 2020-11-28 08:04 | NUR ---
PT RESTING IN SEMI FOWLERS POSITION. PT IS A/O X3. ASSESSMENT AND VITALS COMPLETED. REPSIRATIONS ARE EVEN AND UNLABORED, 92% ON 2L NC. LUNG SOUNDS ARE ILANA. RHEART RHYTHM NORMAL WITH TELE IN PLACE. BOWEL SOUNDS ARE ACTIVE. PULSES STRONG. #22G RFA FLUSHED, SITE APPEARS HEALTHY AND PATENT. SKIN INTACT. PT DENIES OF ANY PAINS OR DISCOMFORTS AT THIS TIME. ATTEMPTED TO REMOVED O2 AT THIS TIME FOR WALK TEST, O2 DESAT TO 87% ON ROOM AIR. 2L NC REAPPLIED. RESPIRATIONS REMAINS EVEN AND UNLABORED WITH NO DISTRESS. PT DENIES OF ANY ADDITIONAL NEEDS. ALL SAFETY PRECAUTIONS ARE IN PLACE WITH CALL LIGHT IN REACH. ISOALTION PRECAUTIONS. WILL CONTINUE TO MONITOR.
[2020-11-28 10:37] VITALS: BP 111/65
--- NOTE | 2020-11-28 12:01 | NUR ---
PT RESTING IN SEMI FOWLERS POSITION. RESPIRATIONS ARE EVEN AND UNLABORED, 92% ON 3L NC. TELE MONITORING IN PLACE. IV REMAINS IN PLACE. ACCUCHECK REUSLTING IN 335, COVAGE ADMINISTERED. PT DNEIES OF ANY PAINS OR DISCOMFORTS AT THSI TIME. ALL SAFETY PRECAUTIONS ARE IN PLACE WITH CALL LIGHT IN REACH. WILL CONTINUE TO MONITOR.
[2020-11-28] MEDS ORDERED: VENTOLIN HFA108 MCG IN (12:38)
[2020-11-28] MEDS ORDERED: DEXAMETHASON6 MG PO (12:39)
[2020-11-28] MEDS ORDERED: ZITHROMAX250 MG PO (12:39)
[2020-11-28] MEDS ORDERED: ASPIRIN REGULA325 M1 PO (12:40)
[2020-11-28] MEDS ORDERED: LEVEMIR FL100 UNIT/M SC (12:56)
--- NOTE | 2020-11-28 15:13 | NUR ---
PT EDUCATED ON DC INSTRUCTIONS NEW MEDICATIONS SENT TO [facility] AND HOME O2. PT VERBLAIZED UNDERSTANDING. IV REMOVED WITH CATH STILL INTACT. TELE MONITORING REMOVED. ER NOTIFIED. TRANSPORTATION TO BE CALLED. WILL CONTINUE TO MONITOR
--- NOTE | 2020-11-28 15:29 | NUR ---
Discharge instructions given. Patient verbalizes understanding of same. Discharged in stable condition via Wheelchair to Home with staff. All belongings sent with pt. PT DC HOME IN STABLE CONDITION WITH HOME O2, DC INSTRUCTIONS AND ALL PERSONAL BELONGINGS.
== END 2020-11-28 15:29 | disposition home or self-care (01) | DRG 177 ==
LOC: ED 21:25 → ED-I 23:36 → ED 23:52 → ED-I 23:53 → MS2 11-21 16:10 → ICU 11-21 21:26 → MS2 11-21 21:26 → ICU 11-22 12:55 → MS2 11-26 19:29
PROVIDERS: Nurse Practitioner; ADMIT Hospitalist; ATTEND Internal Medicine
PROC: XW033E5 Introduction of Remdesivir Anti-infective into Peripheral Vein, Percutaneous Approach, New Technology Group 5 (ICD-10-PCS; principal; 2020-11-21)
DX: U07.1 COVID-19 (principal); J12.82 Pneumonia due to coronavirus disease 2019; J96.01 Acute respiratory failure with hypoxia; I10 Essential (primary) hypertension; E11.65 Type 2 diabetes mellitus with hyperglycemia; E78.5 Hyperlipidemia, unspecified; F17.200 Nicotine dependence, unspecified, uncomplicated; Z79.84 Long term (current) use of oral hypoglycemic drugs
CPT/HCPCS: J1650